=== PATIENT | female | born 1970 | race Two or more races ===

== ENCOUNTER 2022-03-09 11:40 | Outpatient (CLI) | payer OTHER ==
[~2022-03-09 11:40] MED LIST: ZYRTEC10 M3 PO
== END 2022-03-09 11:48 | disposition home or self-care (01) ==
LOC: LAB 11:40
PROVIDERS: ATTEND Pediatrics
DX: Z20.822 Contact with and (suspected) exposure to COVID-19 (principal)

== ENCOUNTER 2022-03-23 09:06 | Outpatient (CLI) | payer OTHER | END 2022-03-23 09:12 | disposition home or self-care (01) | LOC: LAB 09:06 | PROVIDERS: ATTEND Obstetrics & Gynecology | DX: E78.5 Hyperlipidemia, unspecified (principal); E34.9 Endocrine disorder, unspecified; E23.6 Other disorders of pituitary gland; N39.0 Urinary tract infection, site not specified ==

== ENCOUNTER 2022-05-17 15:37 | Emergency (ER) | payer OTHER ==
[~2022-05-17] VITALS: Ht 121.9 cm; Wt 77.1 kg
[2022-05-17] MEDS ORDERED: ALEVE (16:53)
[2022-05-17] MEDS ORDERED: CEPHALEXIN500 MG PO (17:07)
== END 2022-05-17 17:21 | disposition home or self-care (01) ==
LOC: ER 15:37
DX: L03.012 Cellulitis of left finger (principal)

== ENCOUNTER 2023-04-19 09:17 | Outpatient (CLI) | payer OTHER ==
[~2023-04-19 09:17] MED LIST changes: +ALEVE; +CEPHALEXIN500 MG PO
== END 2023-04-19 09:19 | disposition home or self-care (01) ==
LOC: LAB 09:17
DX: E06.3 Autoimmune thyroiditis (principal); E66.9 Obesity, unspecified; E55.9 Vitamin D deficiency, unspecified; D64.9 Anemia, unspecified; Z12.11 Encounter for screening for malignant neoplasm of colon; N95.9 Unspecified menopausal and perimenopausal disorder; E28.1 Androgen excess; R73.01 Impaired fasting glucose

== ENCOUNTER 2023-04-21 13:38 | Outpatient (CLI) | payer OTHER | END 2023-04-21 13:42 | disposition home or self-care (01) | LOC: SONOGRAMA 13:38 | DX: E04.9 Nontoxic goiter, unspecified (principal); E03.9 Hypothyroidism, unspecified ==

== ENCOUNTER 2023-04-26 08:15 | Outpatient (CLI) | payer OTHER | END 2023-04-26 08:22 | disposition home or self-care (01) | LOC: LAB 08:15 | DX: E24.9 Cushing's syndrome, unspecified (principal); E06.3 Autoimmune thyroiditis; E66.9 Obesity, unspecified; E55.9 Vitamin D deficiency, unspecified; R73.01 Impaired fasting glucose; D64.9 Anemia, unspecified; Z12.11 Encounter for screening for malignant neoplasm of colon ==

== ENCOUNTER 2024-08-18 08:00 | Emergency (ER) | payer OTHER ==
[~2024-08-18] VITALS: Ht 149.9 cm; Wt 77.1 kg
[2024-08-18] MEDS ORDERED: ORPHENADRINE CITRATE 30 MG/ML AMPUL IM ONE (09:00)
[2024-08-18] MEDS ORDERED: KETOROLAC TROMETHAMINE 60 MG VIAL IM ONE (09:00)
[2024-08-18 09:27] LABS: HEMATOCRIT 39.9 % (36.0-45.00); HEMOGLOBIN 13.7 g/dL (12.0-15.00); MEAN CELL VOLUME 92.1 fL (80.00-100.00); MEAN CORPUSCULAR HEMOGLOBIN 31.7 pg (27.00-32.0); MEAN CORPUSCULAR HGB CONC 34.5 g/dl (32.0-36.0); PLATELET COUNT 262 K/uL (150-450); RED BLOOD COUNT 4.33 M/uL (4.00-6.00); RED CELL DISTRIBUTION WIDTH 13.5 % (11.5-14.5)
[2024-08-18 10:18] LABS: ALBUMIN 3.3 gm/dL (3.4-5.0); BILIRUBIN TOTAL 0.39 mg/dL (0.3-1.2); CALCIUM 9.3 mg/dL (8.5-10.1); CREATININE SERUM 0.75 mg/dL (0.55-1.02); GFR 80.53; GLOBULINA 4.5 G/DL (2.4-3.5); POTASSIUM 4.08 mEq/L (3.5-5.1); TOTAL PROTEIN 7.8 gm/dL (6.4-8.2)
[2024-08-18] MEDS ORDERED: LEVOFLOXACIN500 MG PO (10:30)
[2024-08-18] MEDS ORDERED: NORFLEX100MG PO (10:30)
[2024-08-18] MEDS ORDERED: MEDROLPACK PO (10:30)
[2024-08-18] MEDS ORDERED: PEPCID AC20 MG PO (10:30)
== END 2024-08-18 11:35 | disposition home or self-care (01) ==
LOC: ER 08:02
PROVIDERS: General Practice
DX: L02.91 Cutaneous abscess, unspecified (principal); M25.512 Pain in left shoulder; E03.8 Other specified hypothyroidism

== ENCOUNTER → 2024-08-21 08:40 | Outpatient (CLI) | payer OTHER ==
[~2024-08-21 08:40] MED LIST changes: +LEVOFLOXACIN500 MG PO; +MEDROLPACK PO; +NORFLEX100MG PO; +PEPCID AC20 MG PO
[2024-08-21 10:31] LABS: HEMATOCRIT 41.8 % (36.0-45.00); HEMOGLOBIN 13.9 g/dL (12.0-15.00); MEAN CELL VOLUME 92.5 fL (80.00-100.00); MEAN CORPUSCULAR HEMOGLOBIN 30.7 pg (27.00-32.0); MEAN CORPUSCULAR HGB CONC 33.2 g/dl (32.0-36.0); PLATELET COUNT 231 K/uL (150-450); RED BLOOD COUNT 4.51 M/uL (4.00-6.00); RED CELL DISTRIBUTION WIDTH 13.4 % (11.5-14.5)
[2024-08-21 11:20] LABS: ALBUMIN 3.7 gm/dL (3.4-5.0); BILIRUBIN TOTAL 0.37 mg/dL (0.3-1.2); CALCIUM 9.5 mg/dL (8.5-10.1); CHOL HDL RATIO 3.7 (0-5.0); CREATININE SERUM 0.76 mg/dL (0.55-1.02); GFR 79.31; GLOBULINA 4.1 G/DL (2.4-3.5); POTASSIUM 4.32 mEq/L (3.5-5.1); TOTAL PROTEIN 7.8 gm/dL (6.4-8.2); TSH 2.12 uIU/mL (0.358-3.74)
[2024-08-21 11:53] LABS: URINE APPEARANCE Clear; URINE BILIRRUBIN Negative (NEGATIVE); URINE BLOOD Negative; URINE COLOR Yellow; URINE GLUCOSE Negative (NEGATIVE); URINE KETONE Negative (NEGATIVE); URINE LEUKOCYTE Negative; URINE NITRATE Negative; URINE PROTEIN 30 (NEGATIVE); URINE UROBILINOGEN 0.2 E.U./dl
[2024-08-21 11:58] LABS: URINE BACTERIA 605.9 uL (0.0-1933); URINE EPITHELIAL CELLS 41.8 uL (0.0-38.8); URINE RBC 5.8 uL (0.0-20.8); URINE WBC 15.3 uL (0.0-23.2)
[2024-08-21 12:10] LABS: URINE CAST 0.15 uL (0.0-1.40)
[2024-08-23 10:26] LABS: VITAMIN D3 25 HYDROXY 65.22 ng/ml (30-120)
[2024-08-25 15:04] LABS: ANTI THYROID PEROXIDASE > 600 IU/mL (0-34); FOLLICLE STIMULATING HORMONE 32.2 mIU/mL (.)
[2024-08-28 22:04] LABS: T T 5 ng/dL (4-50); test free < 0.2 pg/mL (0.0-4.2)
== END | disposition home or self-care (01) ==
LOC: LAB 08:40
PROVIDERS: ATTEND Obstetrics & Gynecology
DX: E78.5 Hyperlipidemia, unspecified (principal); E34.9 Endocrine disorder, unspecified; E23.6 Other disorders of pituitary gland; R19.00 Intra-abdominal and pelvic swelling, mass and lump, unspecified site; N39.0 Urinary tract infection, site not specified

== ENCOUNTER 2024-09-01 11:53 | Outpatient (CLI) | payer OTHER | END 2024-09-01 11:57 | disposition home or self-care (01) | LOC: MAMO-SONO 11:53 | PROVIDERS: ATTEND Obstetrics & Gynecology | DX: N60.11 Diffuse cystic mastopathy of right breast (principal); N60.12 Diffuse cystic mastopathy of left breast; Z12.31 Encounter for screening mammogram for malignant neoplasm of breast ==

== ENCOUNTER 2025-04-16 07:34 | Outpatient (CLI) | payer OTHER ==
[2025-04-16 09:11] LABS: BASO % 0.7 % (0.1-1.2); EOS # 0.15 (0.04-0.54); EOS % 2.5 % (0.7-7.0); HEMATOCRIT 39.5 % (34.1-44.9); HEMOGLOBIN 13.2 g/dL (11.2-15.7); LYMPH # 1.48 (1.18-3.74); LYMPH % 24.5 % (19.3-53.1); MEAN CORPUSCULAR HEMOGLOBIN 30.4 pg (25.6-32.2); MONO # 0.55 (0.24-0.82); MONO % 9.1 % (4.7-12.5); NEUT # 3.82 (1.56-6.13); PLATELET COUNT 253 K/uL (163-369); RED BLOOD COUNT 4.34 M/uL (3.93-5.22); RED CELL DISTRIBUTION WIDTH 12.7 % (11.6-14.4)
[2025-04-16 09:50] LABS: ALBUMIN 3.5 gm/dL (3.4-5.0); BILIRUBIN TOTAL 0.48 mg/dL (0.3-1.2); CALCIUM 8.9 mg/dL (8.5-10.1); CHOL HDL RATIO 3.1 (0-5.0); CREATININE SERUM 0.72 mg/dL (0.55-1.02); GFR 84.1; GLOBULINA 3.8 G/DL (2.4-3.5); POTASSIUM 4.62 mEq/L (3.5-5.1); T4 FREE 0.86 NG/ML (0.76-1.46); TOTAL PROTEIN 7.3 gm/dL (6.4-8.2); TSH 1.75 uIU/mL (0.358-3.74)
== END 2025-04-16 07:43 | disposition home or self-care (01) ==
LOC: LAB 07:34
DX: E06.3 Autoimmune thyroiditis (principal); E04.1 Nontoxic single thyroid nodule; Z78.0 Asymptomatic menopausal state; E66.812 Obesity, class 2

== ENCOUNTER 2025-04-29 07:10 | Outpatient (CLI) | payer OTHER | END 2025-04-29 07:12 | disposition home or self-care (01) | LOC: SONOGRAMA 07:10 | PROVIDERS: ATTEND Internal Medicine Pulmonary Disease | DX: E06.3 Autoimmune thyroiditis (principal); E04.1 Nontoxic single thyroid nodule; Z78.0 Asymptomatic menopausal state; E66.812 Obesity, class 2; J30.9 Allergic rhinitis, unspecified; R06.02 Shortness of breath ==

== ENCOUNTER 2025-05-19 08:36 | Outpatient (CLI) | payer OTHER | END 2025-05-19 08:37 | disposition home or self-care (01) | LOC: SONOGRAMA 08:36 | PROVIDERS: ATTEND Pathology Anatomic Pathology | DX: D34 Benign neoplasm of thyroid gland (principal); E06.3 Autoimmune thyroiditis; E04.1 Nontoxic single thyroid nodule ==